=== PATIENT | male | born 2000 | race Caucasian/White ===

== ENCOUNTER 2019-12-04 17:29 | Emergency (ER) | payer OTHER, SELFPAY ==
[2019-12-04 18:10] VITALS: BP 124/68; PULSE 101; RESP 18; TEMP 36.8; O2SAT 100
[2019-12-04] MEDS: KETOROLAC (*BKC) 60 MG/2 ML VIAL 30 MG IM (19:25)
[2019-12-04 19:36] LABS: Monoscreen Negative (Negative); Negative Monotest Control Negative (Negative); Positive Monotest Control Positive (Positive)
[2019-12-04 19:37] VITALS: BP 121/72; PULSE 89; O2SAT 99
--- NOTE | 2019-12-04 20:00 | ED.GENADULT ---
HPI - General Adult General Chief complaint: Upper Respiratory Infection <Jamie Ramirez PA-C - Last Filed: 12/04/19 20:52> Stated complaint: sore throat <BEATRIZ Fry Last Filed: 12/04/19 20:52> Time Seen by Provider: 12/04/19 18:19 <BEATRIZ Fry Last Filed: 12/04/19 20:52> Source: patient <BEATRIZ Fry Last Filed: 12/04/19 20:52> Mode of arrival: ambulatory <BEATRIZ Fry Last Filed: 12/04/19 20:52> Limitations: no limitations <BEATRIZ Fry Filed: 12/04/19 20:52> History of Present Illness HPI narrative: Patient presents with chief complaint of sore throat for the past 2 days. Patient states that he was looking in the mirror his throat and noticed white and dark patches to his tonsils so he came immediately to the emergency department. Patient states he has discomfort with swallowing but is able to swallow food, drink and secretions without difficulty. Patient denies fever, chills, nausea, vomiting, cough or any other symptoms <BEATRIZ Fry Last Filed: 12/04/19 20:52> Related Data Allergies/adverse reactions: Allergies Allergy/AdvReac Type Severity Reaction Status Date / Time No Known Allergies Allergy Verified 12/04/19 18:12 <BEATRIZ Fry Last Filed: 12/04/19 20:52> Review of Systems Review of Systems: Narrative: CONSTITUTIONAL: Denies fever, chills, or sweats. EYES: Denies visual changes, redness, or discharge. ENT: Reports sore throat with exudate denies rhinorrhea, congestion, or otalgia. CARDIOVASCULAR: Denies chest pain, palpitations, or edema. RESPIRATORY: Denies cough or dyspnea. GASTROINTESTINAL: Denies abdominal pain, nausea, vomiting, or diarrhea. GENITOURINARY: Denies dysuria or hematuria. SKIN: Denies rash or itching. MUSCULOSKELETAL: Denies back pain, myalgia, or joint pain NEUROLOGIC: Denies headache, numbness, dizziness, or weakness. PSYCHIATRIC: Denies anxiety or depression. <Jamie Ramirez PA-C - Last Filed: 12/04/19 20:52> [facility] Social History Social History: Social History Gender identity (if verbalized by the patient): Male <Jamie Ramirez PA-C - Last Filed: 12/04/19 20:52> Exam Narrative: Exam Narrative: GENERAL: Well-appearing, well-nourished. HEAD: Normocephalic, atraumatic. EYES: PERRLA and EOMI. ENT: Nares clear, no rhinorrhea or epistaxis. Mucous membranes moist. Oropharynx without tonsillar hypertrophy with exudate. Airway still patent. Bilateral TMs pearly heart nonbulging NECK: Supple. No adenopathy or masses. No vertebral tenderness or loss of ROM. CHEST: Clear to auscultation. No respiratory distress. No wheezes rales or rhonchi HEART: Regular rate and rhythm. Normal peripheral pulses. EXTREMITIES: No acute changes in ROM. No edema. SKIN: Warm, dry, no rash. NEURO: No focal deficits. Alert and oriented x3. PSYCH: Normal mood and affect. <Jamie Ramirez PA-C - Last Filed: 12/04/19 20:52> Course Vital Signs Vital signs: Vital Signs Temperature 36.8 C 12/04/19 18:10 Pulse Rate 101 H 12/04/19 18:10 Respiratory Rate 18 12/04/19 18:10 Blood Pressure 124/68 12/04/19 18:10 Pulse Oximetry 100 12/04/19 18:10 Temperature 36.8 C 12/04/19 18:10 Pulse Rate 89 12/04/19 19:37 Respiratory Rate 18 12/04/19 18:10 Blood Pressure 121/72 12/04/19 19:37 Pulse Oximetry 99 12/04/19 19:37 <Jamie Ramirez PA-C - Last Filed: 12/04/19 20:52> Vital Signs Temperature 36.8 C 12/04/19 18:10 Pulse Rate 101 H 12/04/19 18:10 Respiratory Rate 18 12/04/19 18:10 Blood Pressure 124/68 12/04/19 18:10 Pulse Oximetry 100 12/04/19 18:10 Temperature 36.8 C 12/04/19 18:10 Pulse Rate 89 12/04/19 19:37 Respiratory Rate 18 12/04/19 18:10 Blood Pressure 121/72 12/04/19 19:37 Pulse Oximetry 99 12/04/19 19:37 <Sonia Bhatia MD - Last Filed: 12/04/19 20:58> Medical Decision [facility]
[2019-12-04 21:08] VITALS: BP 127/74; PULSE 86; RESP 17; O2SAT 99
[2019-12-05 13:58] LABS: SARS-CoV-2 RNA PCR Positive
== END 2019-12-04 21:09 | disposition home or self-care (01) ==
PROVIDERS: Physician Assistant; Emergency Provider Emergency Medicine
DX: U07.1 COVID-19 (principal)
CPT/HCPCS: 36415; 86308; 87081; 87635; 87880; 96372; 99283; C9803; J1885; U0003